=== PATIENT | male | born 1995 | race Two or more races ===

== ENCOUNTER 2023-06-02 15:17 | Emergency (ER) | payer OTHER ==
[~2023-06-02] VITALS: Ht 180.3 cm; Wt 101.9 kg
[2023-06-02 15:58] VITALS: BP 146/89; PULSE 81; RESP 18; TEMP 97.8; O2SAT 99
[2023-06-02] MEDS ORDERED: KETOROLAC TROMETH 30 MG/ML 1ML VIAL IV ONE (16:30)
[2023-06-02] MEDS ORDERED: IBUP1TAB5 PO (16:45)
== END 2023-06-02 17:20 | disposition home or self-care (01) ==
LOC: ER 15:17
DX: M54.6 Pain in thoracic spine (principal); Z79.1 Long term (current) use of non-steroidal anti-inflammatories (NSAID)
CPT/HCPCS: 72070; 96374; 99283; J1885